=== PATIENT | female | born 1940 | race Caucasian/White ===

== ENCOUNTER 2017-04-24 10:52 | Outpatient (CLI) | payer BC | END 2017-04-24 18:54 | disposition home or self-care (01) | LOC: SMA 10:52 | PROVIDERS: ATTEND Internal Medicine Hospice and Palliative Medicine | DX: Z12.31 Encounter for screening mammogram for malignant neoplasm of breast (principal); J44.9 Chronic obstructive pulmonary disease, unspecified; Z98.890 Other specified postprocedural states; Z85.3 Personal history of malignant neoplasm of breast | CPT/HCPCS: 77067 ==

== ENCOUNTER → 2018-05-26 | Outpatient (CLI) | payer BC | END | disposition home or self-care (01) | LOC: SMA 09:43 | PROVIDERS: ATTEND Internal Medicine Hospice and Palliative Medicine | DX: C50.912 Malignant neoplasm of unspecified site of left female breast (principal) | CPT/HCPCS: 77066 ==

== ENCOUNTER 2019-06-18 10:01 | Outpatient (CLI) | payer BC | END 2019-06-18 20:56 | disposition home or self-care (01) | LOC: SMA 10:01 | PROVIDERS: ATTEND Internal Medicine Hospice and Palliative Medicine | DX: N63.21 Unspecified lump in the left breast, upper outer quadrant (principal); Z85.3 Personal history of malignant neoplasm of breast | CPT/HCPCS: 76642; 77066 ==